=== PATIENT | female | born 1985 | race Caucasian/White ===

== ENCOUNTER 2019-06-18 13:05 | Outpatient (CLI) | payer BC ==
--- NOTE | 2019-06-18 13:36 | Diagnostic Imaging Report ---
PATIENT MR#: [id number] PATIENT PATIENT NAME: ALVARO SEN DATE OF : 1985 REFERRING PHYSICIAN: Matilde Landers EXAM DATE: 06/18/2019 ACCESSION NUMBER: [id number] EXAM DESCRIPTION: CHEST 2VIEW CHEST 2 VIEWS CLINICAL INDICATION: POSITIVE TB TEST (Hx) / Note time : 06/18/2019 1:20:20 PM User : Marce Tran POSITIVE TB TEST - (DICOM Hx) (DICOM Hx) FINDINGS: Two views of the chest were obtained. The lungs are well expanded. No confluent infiltrate, consolidation, or effusion is present. The hear t and mediastinal silhouettes are normal. IMPRESSION: No acute cardiopulmonary disease. Read by: Dr. Rico Valencia Transcribed by: Transcribed Date: Electronically signed by: Dr. Rico Valencia Date signed: 06/18/2019 1:35:33 PM
== END 2019-06-18 13:15 ==
LOC: RAD 13:05
PROVIDERS: ATTEND Family Medicine
DX: R76.11 Nonspecific reaction to tuberculin skin test without active tuberculosis (principal)
CPT/HCPCS: 71046